=== PATIENT | female | born 1995 | race Caucasian/White ===

== ENCOUNTER 2022-01-22 09:47 | Inpatient (IN) | payer OTHER ==
[~2022-01-22] VITALS: Ht 152.4 cm; Wt 59.4 kg
[2022-01-22 10:21] LABS: BILIRUBIN NEGATIVE (NEGATIVE); BLOOD NEGATIVE Ery/uL (NEGATIVE); CLARITY CLEAR (CLEAR); COLOR YELLOW (YELLOW); GLUCOSE (U) NORMAL (NORMAL); LEUKOCYTES TRACE Leu/uL (NEGATIVE); NITRITE NEGATIVE (NEGATIVE); PROTEIN NEGATIVE (NEGATIVE); pH 6.5 (5.0-9.0)
[2022-01-22 10:30] LABS: AMPHETAMINES NEGATIVE (NEGATIVE); BARBITURATES NEGATIVE (NEGATIVE); ECSTASY (MDMA) NEGATIVE (NEGATIVE); MARIJUANA (THC) NEGATIVE (NEGATIVE); METHADONE NEGATIVE (NEGATIVE); OPIATES NEGATIVE (NEGATIVE); OXYCODONE NEGATIVE (NEGATIVE)
[2022-01-22 10:32] LABS: BACTERIA 1+; SQUAMOUS EPITHELIAL CELLS 20-50
[2022-01-22 10:33] LABS: HCT 38.3 % (37.0-47.0); HGB 12.9 g/dl (12.5-16.0); MCH 28.2 pg (25.0-31.0); MCHC 33.7 g/dL (32.0-36.0); MCV 83.8 fL (78.0-100.0); MPV 10.1 fL (6.0-9.5); RBC 4.57 M/uL (4.20-5.40); RDW 16.1 % (11.5-14.0); WBC 7.9 K/uL (4.0-10.5)
[2022-01-23 07:13] LABS: HCT 36.7 % (37.0-47.0); HGB 12.5 g/dL (12.5-16.0)
== END 2022-01-24 12:50 | disposition home or self-care (01) | DRG 807 ==
LOC: FOD 09:47 → FOB 10:07 → FOD 10:13 → FOB 10:14
PROVIDERS: ADMIT Obstetrics & Gynecology
PROC: 10E0XZZ Delivery of Products of Conception, External Approach (ICD-10-PCS; principal; 2022-01-22)
DX: O42.02 Full-term premature rupture of membranes, onset of labor within 24 hours of rupture (principal); Z37.0 Single live birth; O99.824 Streptococcus B carrier state complicating childbirth; Z3A.38 38 weeks gestation of pregnancy; Z20.822 Contact with and (suspected) exposure to COVID-19; O24.424 Gestational diabetes mellitus in childbirth, insulin controlled; Z86.16 Personal history of COVID-19; Z28.310 Unvaccinated for COVID-19; Z86.2 Personal history of diseases of the blood and blood-forming organs and certain disorders involving the immune mechanism
CPT/HCPCS: 36415; 80305; 81001; 85014; 85018; J2001; J2540; J7120; U0002